=== PATIENT | male | born 1960 | race Caucasian/White ===

== ENCOUNTER 2021-07-06 09:54 | Emergency (ER) | payer MEDICARE, OTHER ==
[2021-07-06 10:42] LABS: BASOPHIL 0.4 % (0-2); EOSINOPHIL 0.6 % (0-5); HCT 46.9 % (42.0-52.0); HGB 16.8 g/dl (13.2-18.0); MCH 32.6 pg (25.0-31.0); MCHC 35.8 g/dL (32.0-36.0); MCV 90.9 fL (78.0-100.0); NEUTROPHIL 73.6 % (41-80); NRBC 0; PLT 239 K/uL (150-400); RBC 5.16 M/uL (4.70-6.00); RDW 13.5 % (11.5-14.0); WBC 13.6 K/uL (4.0-10.5)
[2021-07-06 11:48] LABS: ALBUMIN 3.9 g/dL (3.4-5.0); BUN 11 mg/dL (7-18); CHLORIDE 96 mmol/L (98-107); CO2 (BICARBONATE) 23 mmol/L (21-32); GLOBULIN (CALCULATION) 4.3 g/dL; GLUCOSE 108 mg/dL (74-106); TOTAL PROTEIN 8.2 g/dL (6.4-8.2)
[2021-07-06 11:49] LABS: ALKALINE PHOSHATASE 103 U/L (46-116); ALT 75 U/L (16-63); AST 55 U/L (15-37); BILIRUBIN - TOTAL 0.8 mg/dL (0.2-1.0)
[2021-07-06 12:04] LABS: BILIRUBIN NEGATIVE (NEGATIVE); BLOOD NEGATIVE Ery/uL (NEGATIVE); CLARITY CLEAR (CLEAR); COLOR YELLOW (YELLOW); GLUCOSE (U) NORMAL (NORMAL); LEUKOCYTES NEGATIVE Leu/uL (NEGATIVE); NITRITE NEGATIVE (NEGATIVE); PROTEIN NEGATIVE (NEGATIVE); UROBILINOGEN 0.2 mg/dL (0.2-1.0); pH 6.5 (5.0-9.0)
[2021-07-06] MEDS ORDERED: KEPPRA1000 MG PO (13:12)
== END 2021-07-06 13:24 | disposition home or self-care (01) ==
LOC: FER 09:54
PROVIDERS: Emergency Medicine
DX: G40.409 Other generalized epilepsy and epileptic syndromes, not intractable, without status epilepticus (principal); F17.210 Nicotine dependence, cigarettes, uncomplicated; Z91.14 Patient's other noncompliance with medication regimen
CPT/HCPCS: 36415; 80053; 81003; 85025; G0480; J1953